=== PATIENT | male | born 1975 | race Hispanic/Latino ===

== ENCOUNTER 2018-05-09 15:29 | Outpatient (CLI) | payer OTHER ==
--- NOTE | 2018-05-09 16:01 | RAD ---
CHEST TWO VIEWS: 05/09/18 HISTORY: Cough and wheezing. FINDINGS: No comparison. The cardiac silhouette and pulmonary vasculature are unremarkable. Mediastinum is midline. No conflue nt air space consolidation, pneumothorax or pleural fluid. IMPRESSION: No active cardiopulmonary abnormalities are demonstrated. POS: [facility]
== END 2018-05-09 15:30 | disposition home or self-care (01) ==
LOC: SCSRAD 15:29
PROVIDERS: ATTEND Family Medicine
DX: J20.9 Acute bronchitis, unspecified (principal)
CPT/HCPCS: 71046

== ENCOUNTER 2022-07-03 15:04 | Outpatient (CLI) | payer OTHER | END 2022-07-03 15:05 | disposition home or self-care (01) | LOC: SCSRAD 15:04 | PROVIDERS: ATTEND Family Medicine | DX: R31.29 Other microscopic hematuria (principal); N20.0 Calculus of kidney | CPT/HCPCS: 74018 ==

== ENCOUNTER 2023-02-19 09:33 | Outpatient (CLI) | payer OTHER ==
[2023-02-19 10:53] LABS: #Eosinphils 0.2 10x3/uL (0.0-0.5); #Monocytes 0.5 10x3/uL (0.0-1.1); #Neutrophils 2.1 10x3/uL (1.5-8.4); %Basophils 0.2 % (0.0-2.0); %Eosinophils 3.6 % (0.0-6.0); %Lymphocytes 34.4 % (18.0-47.0); %Monocytes 10.8 % (0.0-10.0); %Neutrophils 50.8 % (40.0-75.0); Mean Corpuscular HGB CONC 34.8 g/dL (32.0-36.0); Mean Corpuscular Volume 91.9 fl (81.2-95.1); Mean Platelet Volume 12.6 fl (7.4-10.4); Platelet Count 91 10x3/uL (150-450); RBC Distribution Width 13.3 % (11.5-14.5); Red Blood Cell (RBC) Count 4.69 10x6/uL (4.32-5.72); White Blood Cell (WBC) Count 4.2 10x3/uL (3.5-10.5)
[2023-02-19 11:23] LABS: ALT (SGPT) 31 U/L (8-55); AST (SGOT) 29 U/L (5-34); Alkaline Phosphatase 88 U/L (40-110); Anion Gap 14 mmol/L (10-20); BUN (Urea Nitrogen) 7 mg/dL (8.9-20.6); Bilirubin, Direct 0.3 mg/dL (0.1-0.3); Bilirubin, Total 0.8 mg/dL (0.2-1.2); Calc. Creatinine Clearance 0 mL/min (70-130); Calcium 9.1 mg/dL (7.8-10.44); Carbon Dioxide 22 mmol/L (22-29); Chloride 109 mmol/L (98-107); Estimated GFR 109; Glucose 83 mg/dL (70-105); Potassium 4.2 mmol/L (3.5-5.1); Protein, Total 8.3 g/dL (6.0-8.3); Sodium 141 mmol/L (136-145)
== END 2023-02-19 09:34 | disposition home or self-care (01) ==
LOC: LABBT 09:33
PROVIDERS: ATTEND Surgery
DX: Z01.812 Encounter for preprocedural laboratory examination (principal); K80.20 Calculus of gallbladder without cholecystitis without obstruction
CPT/HCPCS: 80048; 80076; 85025

== ENCOUNTER 2023-07-13 07:33 | Outpatient (CLI) | payer OTHER | END 2023-07-13 07:34 | disposition home or self-care (01) | LOC: ULT 07:33 | PROVIDERS: ATTEND Family Medicine | DX: R31.29 Other microscopic hematuria (principal) | CPT/HCPCS: 76770 ==

== ENCOUNTER 2023-08-21 07:48 | Outpatient (CLI) | payer OTHER | END 2023-08-21 07:49 | disposition home or self-care (01) | LOC: BICULT 07:48 | PROVIDERS: ATTEND Internal Medicine Gastroenterology | DX: K74.60 Unspecified cirrhosis of liver (principal); I85.10 Secondary esophageal varices without bleeding; R16.1 Splenomegaly, not elsewhere classified | CPT/HCPCS: 76705 ==